=== PATIENT | female | born 1970 | race African-American/Black ===

== ENCOUNTER 2016-12-31 16:08 | Inpatient (IN) | payer OTHER ==
[~2016-12-31] VITALS: Ht 175.3 cm; Wt 166.0 kg
[~2016-12-31 16:08] MED LIST: ACTOS15 MG PO; AMLODIPINE5 MG OR; AMLODIPINE5 MG PO; AMOXICILLIN/CL875 MG PO; AMOXICILLIN500 M1 OR; ATENOLOL50 MG OR; AUGMENTIN875TAB PO; BENZONATATE200 MG PO; CIPROFLOXACN500 MG PO; CLARITIN10 M1 PO; DEPO-MEDROL80 MG/ML IM; FIORICET PO; FLEXERIL OR; GLIPIZIDE ER10 M1 PO; GLIPIZIDE ER5 MG PO; KETOROLAC60 MG/2 ML IJ; LISINOPRIL5 MG PO; LORTAB5 PO; MELOXICAM7.5 MG PO; METFORMIN500 MG PO; METRONIDAZOL500 MG PO; MOTRIN IB200 MG OR; NAPROSYN500 MG PO; PRILOSEC20 MG PO; TENORMIN25 MG PO; TESSALON PER100 MG PO; TORADOL OR; ULTRAM50 M1 OR; [UNRECOGNIZED DRUG - SUPPLY] XX
--- NOTE | 2016-12-31 16:08 | NUR ---
PT TO ROOM 13 W/STEADY GAIT.
--- NOTE | 2016-12-31 16:26 | NUR ---
AT BEDSIDE AND PERFORMED NIH SCALE ON PT. PT W/DRIFT TO [facility]
[2016-12-31] MEDS ORDERED: ASPIRIN81 MG PO (16:27)
[2016-12-31] MEDS ORDERED: METFORMIN500 MG PO ×2 (16:29→16:30)
[2016-12-31] MEDS ORDERED: AMLODIPINE5 MG PO (16:31)
[2016-12-31] MEDS ORDERED: LISINOPRIL20 MG PO (16:32)
[2016-12-31] MEDS ORDERED: WELLBUTRIN100 M2 PO (16:33)
[2016-12-31 16:38] LABS: HEMATOCRIT 37.3 % (37.0-47.0); HEMOGLOBIN 12.2 g/dl (12.0-16.0); IMMATURE GRANULOCYTES 0.3 % (0.0-1.0); MEAN CORPUSCULAR HGB 29.8 pG CALC (26.0-32.0); MEAN CORPUSCULAR HGB CONC 32.7 g/L CALC (32.0-36.0); NEUT# 5.82 thou/uL (2.00-7.15); RED BLOOD COUNT 4.1 mill/uL (4.20-5.60); RED CELL DISTRI WIDTH 13.8 % (11.5-15.5)
[2016-12-31 16:52] LABS: ALKALINE PHOSPHATASE 91 u/l (38-126); ANION GAP 13 (6-22 (CALC)); BILIRUBIN, TOTAL 0.4 mg/dL (0.0-1.4); BUN 16 mg/dL (7-17); BUN/CREATININE RATIO 18 (12-20 (CALC)); CALCIUM 9.3 mg/dL (8.4-10.2); CARBON DIOXIDE 30 mmol/l (22-30); CHLORIDE 100 mmol/l (95-108); CREATININE 0.9 mg/dL (0.5-1.0); GFR > 60 ML/MIN (>=60 (CALC)); GFR FOR AFR.AMER. > 60 ML/MIN (>=60 (CALC)); GLUCOSE 160 mg/dL (65-105); POTASSIUM 4.1 mmol/l (3.5-5.1); SGOT/AST 21 u/l (14-36); SGPT/ALT 24 u/l (9-52); SODIUM 140 mmol/l (137-146); TOTAL PROTEIN 7.9 g/dL (6.3-8.2)
[2016-12-31 17:04] LABS: MYOGLOBIN 55 ng/mL (0 - 62)
--- NOTE | 2016-12-31 17:04 | NUR ---
PT RETURNED FROM CT. AWAITING TEST RESULTS.
--- NOTE | 2016-12-31 18:04 | NUR ---
PT RESTING ON STRETCHER. VSS. IV SITE HEALTHY. APPEARS COMFORTABLE. SPEECH CLEAR. FACIAL SYMMETRY. PT AWARE OF PENDING ADMIT TO MEDSURG. VOICES UNDERSTANDING.
--- NOTE | 2016-12-31 19:00 | NUR ---
REPORT PROVIDED TO EFREM PARK ON MEDSURG TELEMETRY IN PLACE IV SITE HEALTHY. NO APPARENT DISTRES. PT TO MEDSURG VIA STRETCHER.
--- NOTE | 2016-12-31 19:11 | NUR ---
INITIAL TELE READING OF SR 97 WITH PVC'S OBTAINED FROM ER MONITORING
[2016-12-31 19:15] VITALS: BP 123/75
--- NOTE | 2016-12-31 19:15 | NUR ---
PT TRANSFERED TO FLOOR VIA WC IN STABLE CONDITION ACCOMPANIED BY MARLENE VARGAS AND FAMILY;PT AMBULATED WITH A STEADY GAIT TO STANDING SCALE AND BED;VS OBTAINED;ASSESSMENT COMPLETED;IV SITE TO LAC FLUSHED AND PATENT;TELE MONITOR IN PLACE;SKIN INTACT;PT ORIENTED TO ROOM AND CALL LIGHT SYSTEM AND VERBALIZES UNDERSTANDING;SAFETY PRECAUTIONS REINFORCED;COT AND BLANKETS PROVIDED FOR FAMILY MEMBER;PT DENIES ANY NEEDS AT THIS TIME;BED IN LOWEST POSITION WITH CALL LIGHT IN REACH;WILL CONTINUE TO MONITOR
--- NOTE | 2016-12-31 19:15 | NUR ---
MULTIPLE MEDICATIONS WERE NOT GIVEN WHILE PATIENT WAS IN ER;SPOKE WITH ER NURSE JOSE WHO STATED "I WAS BUSY SUTURING ANOTHER PT";RENA ATTEMPTED TO PULL MEDICATIONS TO ADMINISTER LATE BUT UNABLE DUE TO TIME VARIABLE
--- NOTE | 2016-12-31 21:00 | NUR ---
PRN TYLENOL PROVIDED FOR LEFT ARM PAIN RATING 6/10 ON THE PAIN SCALE;WILL CONTINUE TO MONITOR
[2017-01-01 00:35] VITALS: BP 109/71
--- NOTE | 2017-01-01 00:35 | NUR ---
CALLED PHARMACY REGARDING UNVERIFIED MEDICATIONS FROM 2149;ODALIS BOYD STATED THAT ORDERS WOULD BE PUT IN AT THIS TIME.
--- NOTE | 2017-01-01 00:50 | NUR ---
SPOKE WITH PHARMACY FOR THE SECOND TIME REGARDING UNVERIFED ORDERS FROM 12/31 @ 8072
--- NOTE | 2017-01-01 01:05 | NUR ---
PT RESTING IN BED WITH FAMILY AT BEDSIDE;PT COMPLAINS OF LEFT ARM PAIN RATING 8/10 ON THE PAIN SCALE AND REQUESTS PRN PAIN MEDICATION;PT MEDICATED ACCORDINGLY PER MD ORDERS;TELE MONITOR IN PLACE;PT DENIES ANY OTHER NEEDS AT THIS TIME;CALL LIGHT WITHIN REACH;WILL CONTINUE TO MONITOR
[2017-01-01 01:28] LABS: URINE BILIRUBIN - DIPSTICK NEGATIVE (NEGATIVE); URINE BLOOD DIPSTICK NEGATIVE (NEGATIVE); URINE CLARITY CLEAR; URINE COLOR YELLOW; URINE GLUCOSE - DIPSTICK NEGATIVE (NEGATIVE); URINE KETONE NEGATIVE (NEGATIVE); URINE NITRITE - DIPSTICK NEGATIVE (Negative); URINE PH 5.5 (4.5-8.0); URINE PROTEIN - DIPSTICK NEGATIVE (NEG-TRACE); URINE SPECIFIC GRAVITY 1.025; URINE UROBILINOGEN - DIPSTICK 0.2 E.U./dL (0.2)
[2017-01-01 01:29] LABS: URINE LEUK ESTERASE SMALL (NEGATIVE)
[2017-01-01 01:33] LABS: BARBITURATES NEGATIVE (NEGATIVE); COCAINE NEGATIVE (NEGATIVE); METHADONE NEGATIVE (NEGATIVE); OXCYCODONE NEGATIVE (NEGATIVE); TETRAHYDROCANNABIONOL NEGATIVE (NEGATIVE); TRICYLIC ANTIDEPRESSANTS NEGATIVE (NEGATIVE)
[2017-01-01 01:49] LABS: URINE BACTERIA MODERATE hpf; URINE RBC 0-2 RBC/hpf (0-5)
--- NOTE | 2017-01-01 04:00 | NUR ---
PT RESTING IN SEMI FOWLERS POSITION WITH FAMILY AT BEDSIDE;PT REQUESTS WARM PACK FOR LEFT ARM DISCOMFORT;TELE MONITOR IN PLACE;PT DENIES ANY OTHER NEEDS AT THIS TIME;BED IN LOWEST POSITION WITH CALL LIGHT IN REACH;WILL CONTINUE TO MONITOR
[2017-01-01 04:50] VITALS: BP 131/76
[2017-01-01 05:48] LABS: ANION GAP 13 (6-22 (CALC)); BUN 17 mg/dL (7-17); BUN/CREATININE RATIO 25 (12-20 (CALC)); CALCIUM 9.6 mg/dL (8.4-10.2); CALCULATED LDLCHOLESTEROL 74 mg/dL (62-129 (CALC)); CARBON DIOXIDE 27 mmol/l (22-30); CHLORIDE 102 mmol/l (95-108); CREATININE 0.7 mg/dL (0.5-1.0); GFR > 60 ML/MIN (>=60 (CALC)); GFR FOR AFR.AMER. > 60 ML/MIN (>=60 (CALC)); GLUCOSE 164 mg/dL (65-105); HDL CHOLESTEROL 65 mg/dL (>=40); MAGNESIUM 1.6 mg/dL (1.6-2.3); SODIUM 138 mmol/l (137-146); TOTAL CHOLESTEROL 157 mg/dl (0-199); TOTAL TRIGLYCERIDES 86 mg/dl (30-149); VLDL CHOLESTROL 17 mg/dl (1-41 (CALC))
--- NOTE | 2017-01-01 08:50 | NUR ---
PT IN HIGH RUIZ'S POSITION; DENIES PAIN; UNABLE TO FULLY LIFT ARM WITHOUT ASSISTANCE; TELE MONITOR IN PLACE; CALL ESPOSITO WITHIN REACH; WILL CONTINUE TO MONITOR.
[2017-01-01 09:13] VITALS: BP 132/69
--- NOTE | 2017-01-01 09:25 | NUR ---
PHYSICAL THERAPY IN WITH PT
--- NOTE | 2017-01-01 09:53 | NUR ---
DR. ZARCO IN TO SEE PT;
[2017-01-01 13:51] VITALS: BP 138/72
--- NOTE | 2017-01-01 13:59 | NUR ---
PT MEDICATED FOR C/O LEFT SHOULDER PAIN 04/26; CALL ESP[facility]IT[facility] WITHIN REACH; WILL CONTINUE TO MONITOR.
[2017-01-01 16:05] VITALS: BP 155/69
--- NOTE | 2017-01-01 19:30 | NUR ---
RETURNED FROM RADIOLOGY VIA W/C ACCOMPANIED BY STAFF.
--- NOTE | 2017-01-01 23:47 | NUR ---
PT IN RECLINER CHAIR WITH EYES CLOSED, RESPIRATIONS EVEN AND UNLABORED.
[2017-01-02] VITALS: BP 126/67
[2017-01-02 05:00] VITALS: BP 127/82
--- NOTE | 2017-01-02 05:29 | NUR ---
C/O LEFT SHOULDER PAIN , MEDICATED WITH TORADOL 30MG IV.
[2017-01-02 05:33] LABS: HEMATOCRIT 38.4 % (37.0-47.0); HEMOGLOBIN 12.4 g/dl (12.0-16.0); IMMATURE GRANULOCYTES 0.4 % (0.0-1.0); MEAN CELL VOLUME 91.4 fL CALC (80.0-100.0); MEAN CORPUSCULAR HGB 29.5 pG CALC (26.0-32.0); MEAN CORPUSCULAR HGB CONC 32.3 g/L CALC (32.0-36.0); NEUT# 4.91 thou/uL (2.00-7.15); RED BLOOD COUNT 4.2 mill/uL (4.20-5.60); RED CELL DISTRI WIDTH 13.9 % (11.5-15.5)
[2017-01-02 05:45] LABS: ANION GAP 14 (6-22 (CALC)); BUN 16 mg/dL (7-17); BUN/CREATININE RATIO 23 (12-20 (CALC)); CALCIUM 9.8 mg/dL (8.4-10.2); CARBON DIOXIDE 28 mmol/l (22-30); CHLORIDE 101 mmol/l (95-108); CREATININE 0.7 mg/dL (0.5-1.0); GFR > 60 ML/MIN (>=60 (CALC)); GFR FOR AFR.AMER. > 60 ML/MIN (>=60 (CALC)); GLUCOSE 169 mg/dL (65-105); SODIUM 138 mmol/l (137-146)
--- NOTE | 2017-01-02 07:00 | NUR ---
SHIFT CHANGE REPORT FROM HAN LEYVA SLEEPING SOUNDLY AND SNORING, BREATHING NON-LABORED, NO SIGN DISCOMFORT, CALL [facility] IN REACH, FAMILY AT BEDSIDE.
[2017-01-02 08:49] VITALS: BP 137/81
[2017-01-02 11:39] VITALS: BP 128/78
--- NOTE | 2017-01-02 12:00 | NUR ---
PT SITTING UP IN BED HAVING MEAL, C/O L. ARM & NECK PAIN, CONCERNS ADDRESSED, CALL ESP[facility]ITO IN REACH.
--- NOTE | 2017-01-02 12:50 | NUR ---
Ok to see pt. for PT this AM per nursing. Pt. found in bed resting arms overhead, pt. reports this alleviates left shoulder pain. Pt. reports left shoulder pain is 9/10 at present, however in agreement to participate in exercises. Pt. seen x20 minutes for therapeutic exercises. Pt. performed active assisted shoulder flexion with hands clasped using right UE to assist left UE 1x10 repetitions in bed. Sitting at edge of bed had pt. perform table slides with left UE x5 repetitions and towel squeezes for left hand gripping x5 repetitions. Sit to stand without UE performed 2 times with stand by guarding, verbal cues for graded control. Static standing balance with eyes closed was maintained for more than 15 seconds, single leg stance on right and then left was maintained for 15 seconds. Light CGA of one during all standing/balance exercises, however no LOB. Gait was monitored in hallway, pt. walked 1x60 feet. Steady gait observed, no assistive devices used. Pt. returned back to bedroom where she got back in bed safely with supervision. Call light and bedside table left within reach, pt. without complaints.
[2017-01-02 15:24] VITALS: BP 114/47
--- NOTE | 2017-01-02 16:00 | NUR ---
INFORMED OF TRANSFER PLANS PROGRESS/ARRANGMENTS TO [facility], STATES UNDERSTANDING, WILL CONTINUE TO MONITOR, CALL ESP[facility] IN REACH.
--- NOTE | 2017-01-02 18:23 | NUR ---
REPORT GIVEN TO SADIQ (RN) AT [facility], PT EXPECTED DEPARTURE TIME IS [id number].
--- NOTE | 2017-01-02 19:30 | NUR ---
Discharge instructions given. Patient verbalizes understanding of same. Discharged in stable condition via [facility] with *Other. All belongings sent with pt.
== END 2017-01-02 19:30 | DRG 552 ==
LOC: ENPENDDIS → ED 16:08 → ED-I 17:45 → ED 17:51 → MS2 17:52
PROVIDERS: Emergency Medicine; Internal Medicine; ADMIT Internal Medicine; ATTEND Internal Medicine
DX: M47.22 Other spondylosis with radiculopathy, cervical region (principal); Z68.43 Body mass index [BMI] 50.0-59.9, adult; I10 Essential (primary) hypertension; E11.9 Type 2 diabetes mellitus without complications; E66.01 Morbid (severe) obesity due to excess calories
CPT/HCPCS: J1650

== ENCOUNTER 2018-10-27 18:22 | Emergency (ER) | payer OTHER ==
[~2018-10-27] VITALS: Ht 175.3 cm; Wt 163.6 kg
[~2018-10-27 18:22] MED LIST changes: +ASPIRIN81 MG PO; +LISINOPRIL20 MG PO; +PHRENILIN1 TAB PO; +TRAMADOL HCL50 MG PO; +WELLBUTRIN100 M2 PO
[2018-10-27] MEDS ORDERED: LOSARTAN POT25 MG PO (18:37)
[2018-10-27] MEDS ORDERED: RANITIDINE150 M1 PO (18:38)
[2018-10-27] MEDS ORDERED: AMOXICILLIN875 MG PO (19:24)
[2018-10-27] MEDS ORDERED: TESSALON PER100 MG PO (19:24)
[2018-10-27 19:53] VITALS: BP 161/101
== END 2018-10-27 19:54 | disposition home or self-care (01) ==
LOC: ED 18:22
DX: H66.93 Otitis media, unspecified, bilateral (principal); E11.9 Type 2 diabetes mellitus without complications; I10 Essential (primary) hypertension; R05 Cough; J02.9 Acute pharyngitis, unspecified

== ENCOUNTER 2019-03-24 19:53 | Emergency (ER) | payer OTHER ==
[~2019-03-24] VITALS: Ht 175.3 cm; Wt 164.8 kg
[~2019-03-24 19:53] MED LIST changes: +AMOXICILLIN875 MG PO; +LOSARTAN POT25 MG PO; +RANITIDINE150 M1 PO
[2019-03-24 21:10] VITALS: BP 121/68
== END 2019-03-24 21:17 | disposition home or self-care (01) ==
LOC: ED 19:53
DX: M17.11 Unilateral primary osteoarthritis, right knee (principal); I10 Essential (primary) hypertension; E11.9 Type 2 diabetes mellitus without complications; Z79.84 Long term (current) use of oral hypoglycemic drugs

== ENCOUNTER 2019-09-21 | Emergency (ER) | payer OTHER ==
[2019-09-21 15:02] LABS: URINE BILIRUBIN - DIPSTICK NEGATIVE (NEGATIVE); URINE BLOOD DIPSTICK TRACE-INTACT (NEGATIVE); URINE COLOR YELLOW; URINE GLUCOSE - DIPSTICK 500 mg/dL (NEGATIVE); URINE KETONE NEGATIVE (NEGATIVE); URINE LEUK ESTERASE NEGATIVE (NEGATIVE); URINE NITRITE - DIPSTICK NEGATIVE (Negative); URINE PROTEIN - DIPSTICK NEGATIVE (NEG-TRACE); URINE SPECIFIC GRAVITY >=1.030; URINE UROBILINOGEN - DIPSTICK 0.2 E.U./dL (0.2)
[2019-09-21 15:07] LABS: HEMATOCRIT 44.4 % (37.0-47.0); HEMOGLOBIN 14.6 g/dl (12.0-16.0); IMMATURE GRANULOCYTES 0.5 % (0.0-5.0); MEAN CELL VOLUME 88.4 fL CALC (80.0-100.0); MEAN CORPUSCULAR HGB 29.1 pG CALC (26.0-32.0); MEAN CORPUSCULAR HGB CONC 32.9 g/L CALC (32.0-36.0); NEUT# 5.49 thou/uL (2.00-7.15); RED BLOOD COUNT 5.02 mill/uL (4.20-5.60); RED CELL DISTRI WIDTH 13.4 % (11.5-15.5)
[2019-09-21 15:22] LABS: ALBUMIN 4.6 g/dL (3.2-5.0); ALKALINE PHOSPHATASE 115 u/l (38-126); AMYLASE 69 u/l (30-110); ANION GAP 16 (6-22 (CALC)); BILIRUBIN, TOTAL 0.7 mg/dL (0.0-1.4); BUN 16 mg/dL (7-17); BUN/CREATININE RATIO 23 (12-20 (CALC)); CARBON DIOXIDE 26 mmol/l (22-30); CHLORIDE 97 mmol/l (95-108); CREATININE 0.7 mg/dL (0.5-1.0); GFR > 60 ML/MIN (>=60 (CALC)); GFR FOR AFR.AMER. > 60 ML/MIN (>=60 (CALC)); LIPASE 283 u/l (23-300); POTASSIUM 4.2 mmol/l (3.5-5.1); SGOT/AST 20 u/l (14-36); SODIUM 135 mmol/l (137-146); TOTAL PROTEIN 8.2 g/dL (6.3-8.2)
[2019-09-21 15:32] LABS: MYOGLOBIN 39 ng/mL (0 - 62)
[2019-09-21] MEDS ORDERED: JANUVIA50 MG PO (15:40)
[2019-09-21] MEDS ORDERED: BYDUREON2 MG IJ (15:43)
== END 2019-09-21 16:36 | disposition home or self-care (01) ==
PROVIDERS: Emergency Medicine
DX: E11.65 Type 2 diabetes mellitus with hyperglycemia (principal); I10 Essential (primary) hypertension; Z79.84 Long term (current) use of oral hypoglycemic drugs

== ENCOUNTER 2024-05-06 20:53 | Emergency (ER) | payer OTHER ==
[~2024-05-06] VITALS: Ht 175.3 cm; Wt 150.0 kg
[2024-05-06] VITALS (13 sets, daily range): BP systolic 119–164; BP diastolic 71–105
[~2024-05-06 20:53] MED LIST changes: +BYDUREON2 MG IJ; +FLEXERIL5 M1 PO; +HYDROCO/APAP1 TA9 PO; +JANUVIA50 MG PO; +NAPROXEN500 MG PO
[2024-05-06] MEDS ORDERED: JARDIANCE10 MG (21:30)
[2024-05-06] MEDS ORDERED: IBUPROFEN 800 MG/TAB PO ONE (21:30)
[2024-05-06] MEDS ORDERED: METFORMIN500 M2 PO (21:30)
== END 2024-05-06 23:45 | disposition home or self-care (01) | DRG 605 ==
LOC: ED 20:53
DX: S80.02XA Contusion of left knee, initial encounter (principal); S80.01XA Contusion of right knee, initial encounter; S93.502A Unspecified sprain of left great toe, initial encounter; I10 Essential (primary) hypertension; E11.9 Type 2 diabetes mellitus without complications; W01.0XXA Fall on same level from slipping, tripping and stumbling without subsequent striking against object, initial encounter; Y92.007 Garden or yard of unspecified non-institutional (private) residence as the place of occurrence of the external cause; Z79.84 Long term (current) use of oral hypoglycemic drugs